=== PATIENT | female | born 1945 | race Caucasian/White ===

== ENCOUNTER 2020-12-13 12:21 | Inpatient (IN) | payer OTHER ==
[~2020-12-13] VITALS: Ht 152.4 cm; Wt 64.5 kg
[~2020-12-13 12:21] MED LIST: ACETAMINOPHEN500 M1 PO; ONDANSETRON ODT4 MG PO; OS-CAL500 MG PO; PERCOCET 5-3251 EACH PO; RECLAST 55 MG/100 M IV; SUPER B-50 COM1 EACH PO; XARELTO10 MG PO
[2020-12-13 13:59] LABS: BASOPHIL 0.3 % (0-2); EOSINOPHIL 0.7 % (0-7); HCT 40.7 % (37.0-47.0); HGB 13.3 g/dl (12.5-16.0); LYMPHOCYTE 4.7 % (15-48); MCH 27.5 pg (25.0-31.0); MCHC 32.7 g/dL (32.0-36.0); MCV 84.3 fL (78.0-100.0); MONOCYTE 2.9 % (0-12); NRBC 0; PLT 129 K/uL (150-400); RBC 4.83 M/uL (4.20-5.40); WBC 13.7 K/uL (4.0-10.5)
[2020-12-13 14:20] LABS: ALBUMIN 2.5 g/dL (3.4-5.0); BUN/CREAT RATIO (CALC) 29.8 RATIO; CREATININE 0.57 mg/dL (0.51-0.95); GLOBULIN (CALCULATION) 4.7 g/dL; POTASSIUM 3.2 mmol/L (3.5-5.1); TOTAL PROTEIN 7.2 g/dL (6.4-8.2)
[2020-12-13 14:24] LABS: LACTIC ACID 2.3 mmol/L (0.4-1.9)
[2020-12-13 15:27] LABS: BILIRUBIN 2+ mg/dL (NEGATIVE); BLOOD 1+ Ery/uL (NEGATIVE); COLOR YELLOW (YELLOW); GLUCOSE (U) NORMAL (NORMAL); LEUKOCYTES 2+ Leu/uL (NEGATIVE); NITRITE NEGATIVE (NEGATIVE); PROTEIN 2+ mg/dL (NEGATIVE); SPECIFIC GRAVITY 1.025 (1.001-1.030)
[2020-12-13 15:56] LABS: CLARITY HAZY (CLEAR)
[2020-12-13 15:57] LABS: URINARY WBC 20-50
[2020-12-13 15:58] LABS: BACTERIA 2+; MUCOUS MODERATE
[2020-12-14 04:10] LABS: BASOPHIL 0.3 % (0-2); EOSINOPHIL 0 % (0-7); HCT 32.3 % (37.0-47.0); HGB 10.2 g/dl (12.5-16.0); LYMPHOCYTE 5.6 % (15-48); MCH 27.2 pg (25.0-31.0); MCHC 31.6 g/dL (32.0-36.0); MCV 86.1 fL (78.0-100.0); MONOCYTE 3.2 % (0-12); MPV 10.9 fL (6.0-9.5); NEUTROPHIL 88.9 % (41-80); NRBC 0; PLT 106 K/uL (150-400); RBC 3.75 M/uL (4.20-5.40); WBC 7.5 K/uL (4.0-10.5)
[2020-12-14 04:37] LABS: ALBUMIN 1.7 g/dL (3.4-5.0); BILIRUBIN - TOTAL 0.5 mg/dL (0.2-1.0); CREATININE 0.5 mg/dL (0.51-0.95); GLOBULIN (CALCULATION) 4.2 g/dL; PHOSPHORUS 3.2 mg/dL (2.6-4.7); POTASSIUM 3.6 mmol/L (3.5-5.1); TOTAL PROTEIN 5.9 g/dL (6.4-8.2)
[2020-12-14 04:38] LABS: MAGNESIUM 2.4 mg/dL (1.8-2.4)
--- NOTE | 2020-12-14 05:23 | NUR ---
PT. SATS IN THE 90'S WITH JUST THE HIGH FLOW O2 AROUND AROUND [phone]. ONCE PT. WENT TO SLEEP O2 DROPPED TO 87-89%. FISHER TROLL LINE NOTIFIED. 100% NRB WAS PLACED BACK ON PT. SATS 93-95% NOW. CARRIE TOLEDO 12/13/20 [id number]
[2020-12-14 08:03] LABS: RETICULOCYTE COUNT 2.8 % (1.0-2.0)
[2020-12-14 08:17] LABS: IRON % SATURATION 5.7 %SAT (20-50)
[2020-12-14 08:55] LABS: FOLIC ACID (SERUM) 20.6 ng/mL (8.6-58.9)
--- NOTE | 2020-12-14 20:35 | NUR ---
PATIENT PRIOR TO INTUABTION ON 40LPM/100% HHFNC AND 15L NRB. PATIENT HAD INCREASED WOB THROUGHOUT THE DAY. ABG TODAY SHOWED PO2 LOWER THIS EVENING. PATIENT INTUBATED WITH ET SIZE 7 @22 LIP VIA GLIDESCOPE #4 BLADE BY FELICIA JOHNSON APRN. PATIENT WAS HYPEROXYGENATED PRIOR TO INTUBATION WITH AMBU BAG. FILTER ON AMBU BAG. TUBE PLACEMENT CONFIRMED VIA AUSCULTATION, CO2 DETECTION AND CXR OBTAINED. ET SPUTUM SPECIMEN OBTAINED AND SENT TO LAB. PATIENT HAS BEEN HARD TO SEDATE AND NOW RESTING WELL AFTER GIVEN PARALYTIC. PATIENT ON AC VT450, RR18, 100% FIO2 AND +10 PEEP CONTINUE TO MONITOR PATIENT ABG AT 2115 PER FELICIA REIS
--- NOTE | 2020-12-15 00:05 | NUR ---
NOTIFIED MD PATIENT HYPOTENSINVE, DECREASE SEDATION AND GIVE FLUID BOLUS
--- NOTE | 2020-12-15 01:00 | NUR ---
CHATO JOHNSON NOTIFIED PATIENT HYPOTENSIVE, CHANGE SEDATION FROM PRECEDEX TO VERSED AND CONTINUE TO MONITOR
--- NOTE | 2020-12-15 01:15 | NUR ---
SETTING CHANGES MADE PER DR. CAMPBELL PER FELICIA JOHNSON AFTER SPEAKING WITH MDI AC VT500, RATE 24, PEEP +12, FIO2 100%
--- NOTE | 2020-12-15 02:00 | NUR ---
CHATO ALEX NOTIFIED PATIENT HYPOTENSIVE, ORDERS RECEIVED.
--- NOTE | 2020-12-15 02:12 | NUR ---
NOTIFIED CHATO JOHNSON PATIENT HYPOTENSIVE, ORDERS FOR FLUID BOLUS, WILL CONTINUE TO MONITOR.
--- NOTE | 2020-12-15 04:00 | NUR ---
SCENARIO WRITER ALEX NOTIFIED PATIENT HYPOTENSIVE AND SATS LOW, SCENARIO WRITER AT BEDSIDE TO EVALUATE PATIENT, ORDERS RECIEVED.
[2020-12-15 04:56] LABS: BASOPHIL 0.1 % (0-2); EOSINOPHIL 0 % (0-7); HCT 29.6 % (37.0-47.0); HGB 9.1 g/dl (12.5-16.0); LYMPHOCYTE 2.9 % (15-48); MCH 27.4 pg (25.0-31.0); MCHC 30.7 g/dL (32.0-36.0); MCV 89.2 fL (78.0-100.0); MONOCYTE 4.4 % (0-12); NEUTROPHIL 91.4 % (41-80); NRBC 0; RBC 3.32 M/uL (4.20-5.40); RDW 17.3 % (11.5-14.0)
--- NOTE | 2020-12-15 05:00 | NUR ---
PATIENT HYPOTENSIVE, VP RESPIRATORY ALEX AT BEDSIDE STARTED EJ, LEVOPHED DRIP STARTED AT 4MCG/MIN. FENT DRIP TO 25 VERSED TO 2.
[2020-12-15 05:14] LABS: ALBUMIN 1.5 g/dL (3.4-5.0); BILIRUBIN - TOTAL 0.3 mg/dL (0.2-1.0); BUN/CREAT RATIO (CALC) 44.7 RATIO; CREATININE 0.47 mg/dL (0.51-0.95); GLOBULIN (CALCULATION) 3.5 g/dL; MAGNESIUM 2.2 mg/dL (1.8-2.4); PHOSPHORUS 2.1 mg/dL (2.6-4.7); POTASSIUM 3.7 mmol/L (3.5-5.1)
[2020-12-15 05:20] LABS: WBC 14.6 K/uL (4.0-10.5)
[2020-12-15 05:22] LABS: PLT 85 K/uL (150-400)
--- NOTE | 2020-12-15 14:56 | NUR ---
PATIENT TRANSFERRED TO [facility]. REOPORT GIVEN TO [facility] ON ICU. ACCEPTIN PHYSICIAN IS JOHN HERNANDEZ. [facility] PER FAMILY REQUEST.
== END 2020-12-15 14:53 | disposition other institution (70) | DRG 871 ==
LOC: FER 12:21 → FICU 17:10
PROVIDERS: Emergency Medicine; Nurse Practitioner; ADMIT Internal Medicine
PROC: 8E0ZXY6 Isolation (ICD-10-PCS; 2020-12-13)
PROC: XW033E5 Introduction of Remdesivir Anti-infective into Peripheral Vein, Percutaneous Approach, New Technology Group 5 (ICD-10-PCS; 2020-12-13)
PROC: 0BH18EZ Insertion of Endotracheal Airway into Trachea, Via Natural or Artificial Opening Endoscopic (ICD-10-PCS; principal; 2020-12-14)
PROC: 5A1935Z Respiratory Ventilation, Less than 24 Consecutive Hours (ICD-10-PCS; 2020-12-14)
DX: A41.89 Other specified sepsis (principal); U07.1 COVID-19; J96.01 Acute respiratory failure with hypoxia; J12.82 Pneumonia due to coronavirus disease 2019; I26.99 Other pulmonary embolism without acute cor pulmonale; J15.9 Unspecified bacterial pneumonia; R65.20 Severe sepsis without septic shock; I95.9 Hypotension, unspecified; Z88.6 Allergy status to analgesic agent; M81.0 Age-related osteoporosis without current pathological fracture; M41.9 Scoliosis, unspecified; M19.90 Unspecified osteoarthritis, unspecified site; Z96.643 Presence of artificial hip joint, bilateral; Z96.651 Presence of right artificial knee joint; Z90.49 Acquired absence of other specified parts of digestive tract; Z98.41 Cataract extraction status, right eye; Z98.42 Cataract extraction status, left eye; Z98.890 Other specified postprocedural states
CPT/HCPCS: 31500; 36415; 36600; 71045; 71275; 74018; 80053; 81001; 82607; 82746; 82803; 83540; 83550; 83605; 83735; 83880; 84100; 84145; 85025; 85379; 87040; 87070; 87077; 87205; 94002; 94010; 94640; 94667; 94668; 94762; C9113; C9399; J0610; J1100; J1450; J1650; J1720; J2250; J2543; J2916; J3010; J3370; J3475; J7030; J7040; J7050; J7060; U0002